=== PATIENT | female | born 1955 | race Caucasian/White ===

== ENCOUNTER 2024-05-14 09:36 | Outpatient (CLI) | payer OTHER | END 2024-05-14 09:39 | disposition home or self-care (01) | LOC: SONOGRAMA 09:36 | PROVIDERS: ATTEND Pathology Anatomic Pathology & Clinical Pathology | DX: D34 Benign neoplasm of thyroid gland (principal); E06.3 Autoimmune thyroiditis; E04.2 Nontoxic multinodular goiter ==